=== PATIENT | female | born 1945 | race Caucasian/White ===

== ENCOUNTER → 2020-01-12 | Outpatient (CLI) | payer MEDICARE, BC ==
--- NOTE | 2020-01-12 18:07 | P.HPBAR ---
Bariatric H&P - History & Physicial H&P Date: 01/12/20 History & Physicial: Visit/CC: Initial Visit Patient initial contact: Initial weight: 118.444 kg Initial weight in pounds: 261.12 Height: 5 ft 4 in Initial BMI: 44.8 Last weight: Current weight: 102.058 kg Current weight in pounds: 225.00 Current BMI: 38.6 [place] body weight (based on NIH guidelines): 54.431 kg Excess body weight loss: 25.5% The patient is a 74 year-old F who presents for Bariatric Assessment. 74-year-old female here to discuss options of bariatric surgery. She apparently has been interested in bariatric surgery for the last 6 years or so. Currently remains interested in sleeve gastrectomy. Patient suffers from chronic back pain, arthritis, hypertension, coronary artery disease, GERD, hiatal hernia. Patient with history of colon cancer many years ago through a large midline incision. Currently on Plavix. Has had a total of 12 cardiac stents. 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 No tobacco use. BMI 38.5. Denies history of DVT or dysphagia. 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 Eczema History of Any Multi-Drug Resistant Organisms: None Reported Past Surgical History: Heart Catheterization With Stent, Hysterectomy, Joint Replacement, Orthopedic Surgery Additional Past Surgical History / Comment(s): Colon resection 1996, Total Thyroidectomy 2002, Hysterectomy 1980, Sven. Knee Replacement-RT.-2009 and Lt.- 2010, Arthroscopic surgeries to bilat. knees, Lasik Surgery Rt. eye October 2013. Past Anesthesia/Blood Transfusion Reactions: No Reported Reaction Date of Last Stent Placement:: 2009 Past Psychological History: No Psychological Hx Reported Smoking Status: Former smoker Past Alcohol Use History: None Reported Past Drug Use History: None Reported - Past Family History Father Family Medical History: Cancer Additional Family Medical History / Comment(s): Mother of heart disease, Brother of heart disease Surgical - Exam Vital Signs Temp Pulse Resp BP 98.1 F 106 H 16 124/87 01/12/20 16:26 01/12/20 16:26 01/12/20 16:26 01/12/20 16:26 Physical exam: General: Well-developed, well-nourished HEENT: Normocephalic, sclerae nonicteric Abdomen: Nontender, nondistended, large midline incision Extremities: No edema Neuro: Alert and oriented Bariatric Assessment & Plan (1) Morbid obesity Narrative/Plan: 74-year-old female with complaints of ongoing obesity. Both surgical and nonoperative weight loss methods discussed with the patient. Risks and benefits of both gastric bypass and sleeve gastrectomy discussed in detail as well. Patient remains interested in sleeve gastrectomy at this time. Patient will require preoperative medical and cardiac clearance. Patient had a recent CAT scan performed which apparently did revealed the hiatal hernia. We'll plan preoperative EGD. We'll plan follow-up back in the bariatric center after upper endoscopy performed. Status: Acute Bariatric Checklist Checklist: Plan: Checklist: EGD: 1. Hiatal hernia: 2. H. Pylori: HgbA1c: Vitamin D: Smoking: Former smoker Primary care physician referral: Brittany Psychiatry clearance: Cardiology clearance: Sleep study: Diet journal: VTE risk score: VTE risk level: Rehab needs at discharge:
[2020-01-13 10:20] VITALS: BP 162/84; PULSE 71; RESP 16; TEMP 98.2; BMI 38.6
== END | disposition home or self-care (01) ==
LOC: BARWHC3 14:51
PROVIDERS: ATTEND Surgery
DX: E66.01 Morbid (severe) obesity due to excess calories (principal); K21.9 Gastro-esophageal reflux disease without esophagitis; K44.9 Diaphragmatic hernia without obstruction or gangrene; I10 Essential (primary) hypertension; M19.90 Unspecified osteoarthritis, unspecified site; G89.29 Other chronic pain; Z68.38 Body mass index [BMI] 38.0-38.9, adult; I25.10 Atherosclerotic heart disease of native coronary artery without angina pectoris; Z87.891 Personal history of nicotine dependence; Z85.038 Personal history of other malignant neoplasm of large intestine; Z90.710 Acquired absence of both cervix and uterus
CPT/HCPCS: 99211

== ENCOUNTER → 2020-01-18 | Outpatient (CLI) | payer MEDICARE, BC ==
[2020-01-18 13:25] LABS: HCT 36.1 % (34.0-46.0); HGB 12.3 gm/dL (11.4-16.0); MCH 31.7 pg (25.0-35.0); MCV 93.4 fL (80.0-100.0); Mean Platelet Volume 7.3; Platelet Count 138 k/uL (150-450); RBC 3.86 m/uL (3.80-5.40); RDW 14.1 % (11.5-15.5); WBC 5.4 k/uL (3.8-10.6)
[2020-01-18 20:28] LABS: Hemoglobin A1C 5.5 % (4.0-6.0)
[2020-01-18 20:45] LABS: ALT 36 U/L (8-44); AST 30 U/L (13-35); African American GFR (CKD) 57.3 (60.0-200.0); Alkaline Phosphatase 72 U/L (41-126); BUN/Creat Ratio 20.91 Ratio (12.00-20.00); Calcium 9.1 mg/dL (8.7-10.3); Carbon Dioxide 24.3 mmol/L (21.6-31.8); Chloride 107 mmol/L (96-109); Glucose 120 mg/dL (70-110); Iron 119 ug/dL (50-170); Non-African American GFR(CKD) 49.4 (60.0-200.0); Potassium 4.2 mmol/L (3.5-5.5); Sodium 141 mmol/L (135-145); Total Bilirubin 0.8 mg/dL (0.2-1.2); Total Protein 5.8 g/dL (6.2-8.2)
[2020-01-18 21:12] LABS: Folate, Serum >24.0 ng/mL
== END | disposition home or self-care (01) ==
LOC: LABWHC1 09:07
PROVIDERS: ATTEND Surgery
DX: E55.9 Vitamin D deficiency, unspecified (principal); K90.89 Other intestinal malabsorption; E66.01 Morbid (severe) obesity due to excess calories
CPT/HCPCS: 36415; 80053; 82607; 82746; 83036; 83540; 84425; 85027

== ENCOUNTER 2020-03-13 09:01 | Day surgery (SDC) | payer MEDICARE, BC ==
[2020-03-08 10:04] VITALS: BMI 36.6
[~2020-03-13 09:01] MED LIST: LACTATED RINGERS 1,000 ML IV SCH; LIDOCAINE 1% (10MG/ML) FOR IV START INTRADERMA PRN
[2020-03-13 09:35] VITALS: RESP 16; TEMP 96.8
[2020-03-13] MEDS ORDERED: PROPOFOL 10 MG/ML 20 ML VIAL IV ONE (09:48)
--- NOTE | 2020-03-13 09:58 | P.GSHP ---
History of Present Illness H&P Date: 03/13/20 Chief Complaint: Change in bowel habits, reflux Patient here today for upper and lower endoscopy. Patient with complaints of chronic reflux. Has a known hiatal hernia. Patient also with a personal history of colon cancer in the descending colon. Last colonoscopy 1 year ago. Patient has had narrower stools recently. History of polyps as well. No rectal bleeding. 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 Knee Replacement, Arthroscopic bilat. knees, Lasik Surgery Rt. eye, sven rt oophorectomy, rt elbow surgery, 12 cardiac stents(5 heart catheterizations) Past Anesthesia/Blood Transfusion Reactions: Motion Sickness Date of Last Stent Placement:: 09/2017 Smoking Status: Former smoker - Past Family History Father Family Medical History: Cancer Additional Family Medical History / Comment(s): lung Medications and Allergies Home Medications Medication Instructions Recorded Confirmed Type Atorvastatin Calcium [Lipitor] 40 mg PO DAILY 11/23/13 03/13/20 History Multivitamins, Thera [Multivitamin 1 each PO HS 11/23/13 03/13/20 History (formulary)] Pantoprazole Sodium [Protonix] 40 mg PO HS 11/23/13 03/13/20 History clonazePAM [KlonoPIN] 1 mg PO HS 11/23/13 03/13/20 History Nitroglycerin Sl Tabs [Nitrostat] 0.4 mg SUBLINGUAL Q5M PRN #25 tab 11/25/13 03/13/20 Rx Aspirin [Adult Low Dose Aspirin EC] 81 mg PO HS 03/08/20 03/13/20 History Cannabidiol (Cbd) [Epidiolex] 0 mg PO DIRECTED 03/08/20 03/13/20 History Cholecalciferol [Vitamin D3 (25 2,000 unit PO HS 03/08/20 03/13/20 History Mcg = 1000 Iu)] Clopidogrel [Plavix] 75 mg PO DAILY 03/08/20 03/13/20 History Levothyroxine Sodium [Synthroid] 88 mcg PO DAILY 03/08/20 03/13/20 History Liothyronine Sodium [Cytomel] 25 mcg PO DAILY 03/08/20 03/13/20 History Metoprolol Succinate [Toprol XL] 100 mg PO HS 03/08/20 03/13/20 History Olmesartan [Benicar] 20 mg PO DAILY 03/08/20 03/13/20 History Triamterene/Hydrochlorothiazid 1 cap PO DAILY 03/08/20 03/13/20 History [Dyazide 37.5-25 Capsule] Turmeric Root Extract [Turmeric] 500 mg PO HS 03/08/20 03/13/20 History diphenhydrAMINE [Benadryl] 25 mg PO HS 03/08/20 03/13/20 History Allergies Allergy/AdvReac Type Severity Reaction Status Date / Time hydromorphone HCl AdvReac Itching Verified 03/08/20 09:48 [From Dilaudid] ondansetron HCl [From Zofran] AdvReac Dyspnea Verified 03/08/20 09:48 Surgical - Exam Vital Signs Temp Pulse Resp Pulse Ox 96.8 F L 74 16 96 03/13/20 09:34 03/13/20 09:34 03/13/20 09:34 03/13/20 09:34 Physical exam: General: Well-developed, well-nourished HEENT: Normocephalic, sclerae nonicteric Abdomen: Nontender, nondistended Extremities: No edema Neuro: Alert and oriented Assessment and Plan (1) Change in bowel habits Narrative/Plan: Will proceed with upper and lower endoscopy. Current Visit: Yes Status: Acute Code(s): R19.4 - CHANGE IN BOWEL HABIT SNOMED Code(s): 684776365
--- NOTE | 2020-03-13 10:15 | P.PCN ---
Date of Procedure: 03/13/20 Procedure(s) Performed: PREOPERATIVE DIAGNOSIS: GERD, change in bowel habits POSTOPERATIVE DIAGNOSIS: Mild gastritis with small erosions, small hiatal hernia, small sigmoid polyp PROCEDURE: 1. EGD with biopsy 2. Colonoscopy with biopsy ANESTHESIA: [facility] SURGEON: Bladimir Akhtar M.D. SPECIMENS: Antrum, sigmoid colon polyp ENDOSCOPIC PROCEDURE: The patient was on the endoscopy table in the left decubitus position. The Olympus gastroscope was inserted into the oropharynx and passed under direct visualization to the region of the third portion of the duodenum. From that point the scope was slowly withdrawn inspecting all surfaces carefully. There were no neoplastic inflammatory or polypoid lesions throughout the duodenum. The pylorus was widely patent. The stomach was carefully inspected. There was mild gastritis present a few small erosions were noted. A biopsy of the antrum took place to rule out H. pylori. Retroflexion revealed a small hiatal hernia. The GE junction was present 2 cm above the diaphragmatic hiatus. The esophagus was then carefully examined. There were no neoplastic inflammatory or polypoid lesions throughout the visualized esophagus. The patient was kept on the endoscopy table in the left decubitus position. The Olympus colonoscope was inserted into the anus and passed under direct visualization to the base of the cecum. The appendiceal orifice was visualized. From that point the scope was slowly withdrawn inspecting all surfaces carefully. There were no neoplastic inflammatory or polypoid lesions throughout the cecum, ascending, and transverse colon. The anastomosis was present approximately 30 cm from the anus. There was some angulation there but the anastomosis was widely patent. Just distal to the anastomosis in the sigmoid colon was a small polyp. This was removed using the cold biopsy forceps. There was no visible diverticulosis. Digital rectal examination was normal. The patient was taken to the recovery room in stable condition per anesthesia guidelines. RECOMMENDATIONS: Await biopsy results. Continue antiacid therapy. Follow-up colonoscopy 3-5 years.
[2020-03-13 10:36] VITALS: BP 106/69; PULSE 69
== END 2020-03-13 11:10 | disposition home or self-care (01) ==
LOC: ORWHC2ENDO 09:01
PROVIDERS: ATTEND Surgery
DX: D12.5 Benign neoplasm of sigmoid colon (principal); K29.50 Unspecified chronic gastritis without bleeding; K21.9 Gastro-esophageal reflux disease without esophagitis; K44.9 Diaphragmatic hernia without obstruction or gangrene; I25.10 Atherosclerotic heart disease of native coronary artery without angina pectoris; H91.90 Unspecified hearing loss, unspecified ear; E78.5 Hyperlipidemia, unspecified; I10 Essential (primary) hypertension; M19.90 Unspecified osteoarthritis, unspecified site; E07.9 Disorder of thyroid, unspecified; L30.9 Dermatitis, unspecified; Z85.038 Personal history of other malignant neoplasm of large intestine; H93.11 Tinnitus, right ear; Z85.850 Personal history of malignant neoplasm of thyroid; Z90.49 Acquired absence of other specified parts of digestive tract; Z95.5 Presence of coronary angioplasty implant and graft; Z90.710 Acquired absence of both cervix and uterus; Z96.653 Presence of artificial knee joint, bilateral; Z90.721 Acquired absence of ovaries, unilateral; Z98.890 Other specified postprocedural states; Z87.891 Personal history of nicotine dependence; Z80.1 Family history of malignant neoplasm of trachea, bronchus and lung; Z79.02 Long term (current) use of antithrombotics/antiplatelets; Z79.82 Long term (current) use of aspirin; Z79.890 Hormone replacement therapy; Z79.899 Other long term (current) drug therapy; Z88.5 Allergy status to narcotic agent; Z88.8 Allergy status to other drugs, medicaments and biological substances
CPT/HCPCS: 88305; 45380; 43239; J2704

== ENCOUNTER → 2020-04-30 | Outpatient (CLI) | payer MEDICARE, BC ==
[2020-04-30 13:06] VITALS: BMI 35.3
== END | disposition home or self-care (01) ==
LOC: BARWHC3 08:34
PROVIDERS: ATTEND Surgery
DX: E66.01 Morbid (severe) obesity due to excess calories (principal); Z71.3 Dietary counseling and surveillance
CPT/HCPCS: 97804

== ENCOUNTER 2020-09-26 08:51 | Day surgery (SDC) | payer MEDICARE, BC ==
[2020-09-24 14:41] VITALS: BMI 34.6
[~2020-09-26 08:51] MED LIST changes: -LIDOCAINE 1% (10MG/ML) FOR IV START INTRADERMA PRN; +TETRACAINE 0.5% OPHTH (PF) DROPS 4 ML BTL OP PRN
[2020-09-26] MEDS: CYCLOPENTOLATE 1% OPHTH SOLN 2 ML BTL OP PRN ×3 (10:09→10:25)
[2020-09-26] MEDS ORDERED: LIDOCAINE 1% (10MG/ML) FOR IV START INTRADERMA ONE (10:10)
[2020-09-26 10:12] VITALS: TEMP 97.4
[2020-09-26] MEDS: PHENYLEPHRINE 2.5% OPHTH DRP 2ML OP PRN ×3 (10:12→10:28)
[2020-09-26] MEDS ORDERED: MIDAZOLAM 2 MG/2 ML VIAL ONE (10:52)
[2020-09-26] MEDS ORDERED: EPINEPHrine (PF) 0.3 ML in BALANCED SALT IRRIG SOLN COMB2 500 ML IRRIGATION ONE (11:05)
[2020-09-26] MEDS ORDERED: HYALURONATE SODIUM INTRAOCULAR 1 EACH SYRINGE (12MG/ML) INTRAOCULA ONE ×2 (11:10→11:12)
[2020-09-26] MEDS ORDERED: BALANCED SALT IRRIG SOLN COMB2 15 ML IRRIG.SOLN IRRIGATION ONE ×2 (11:10→11:12)
[2020-09-26] MEDS: TIMOLOL 0.5% OPHTH DROPS 5 ML BTL OP PRN ×2 (11:11→11:17)
[2020-09-26] MEDS ORDERED: LIDOCAINE 1% (PF) 10MG/ML VIAL MISCELLANE ONE ×2 (11:11→11:12)
[2020-09-26] MEDS: MOXIFLOXACIN HCL 0.5% DROPS 3 ML BTL OP PRN ×2 (11:12→11:17)
--- NOTE | 2020-09-26 11:24 | P.OP ---
Date of Procedure: 09/26/20 Preoperative Diagnosis: NS & CS Postoperative Diagnosis: same Procedure(s) Performed: PIOL< OS Implants: MX60E 20.00 Anesthesia: MAC Surgeon: Gerardo Prieto Pathology: none sent Condition: stable Disposition: same day Indications for Procedure: blurry vision Operative Findings: no complications
[2020-09-26 11:52] VITALS: BP 135/78; PULSE 55; RESP 18
--- NOTE | 2020-09-26 20:33 | OP ---
OPERATIVE REPORT DATE OF SURGERY: 09/26/2020 PROCEDURE: Phacoemulsification of cataract and intraocular lens implant of the left eye. PREOPERATIVE DIAGNOSIS: Nuclear sclerosis, cortical sclerosis, posterior subcapsular cataract. POSTOPERATIVE DIAGNOSIS: Nuclear sclerosis, cortical sclerosis, posterior subcapsular cataract. ESTIMATED BLOOD LOSS: Zero. SPECIMEN TAKEN: None. NARRATIVE: After obtaining the appropriate consent, the patient was brought to the operating room, where the patient was placed under cardiac monitoring and prepped and draped in the usual sterile manner. At the 5 o'clock position a 15-degree super sharp blade was used to create a paracentesis followed by instillation of 1% Xylocaine MPF 50:50 mix with BSS into the anterior chamber. This was followed by Amvisc to stabilize the anterior chamber. At the 3 o'clock position a self-sealing corneal flap incision was created using 2.8 mm bina keratome. A cystotome was used to initiate a continuous tear capsulorrhexis which was completed with the Utrata forceps. A Binkhorst cannula was used to hydrodissect the lens nucleus followed by hydrodelineation. Phacoemulsification of the lens was performed utilizing phacochop in 17.69 seconds at 13% power. The remaining cortical material was removed using the irrigation aspiration mode followed by additional 1% Xylocaine MPF into the anterior chamber followed by viscoelastic to stabilize the capsular bag. A Bausch [employer] Lomb MX60E 20.0 diopter posterior chamber lens was placed into the capsular bag without difficulty. The remaining viscoelastic material was removed from the anterior chamber with the irrigation/aspiration. Balanced salt solution was used to normalize the intraocular pressure. The incision was checked for watertight integrity. The patient then received two drops of 0.5% timolol followed by two drops Vigamox, was lightly patched and shielded in the usual manner. There were no complications from the procedure. The patient tolerated the procedure well and was returned to Recovery in good condition. MMODL / IJN: [id number] /
== END 2020-09-26 12:05 | disposition home or self-care (01) ==
LOC: OR 08:51
PROVIDERS: ATTEND Ophthalmology
DX: H25.13 Age-related nuclear cataract, bilateral (principal); H25.013 Cortical age-related cataract, bilateral; H40.013 Open angle with borderline findings, low risk, bilateral; H00.026 Hordeolum internum left eye, unspecified eyelid; H00.023 Hordeolum internum right eye, unspecified eyelid; H52.13 Myopia, bilateral; H52.221 Regular astigmatism, right eye; H52.4 Presbyopia; I25.10 Atherosclerotic heart disease of native coronary artery without angina pectoris; I11.9 Hypertensive heart disease without heart failure; K21.9 Gastro-esophageal reflux disease without esophagitis; H04.129 Dry eye syndrome of unspecified lacrimal gland; E78.5 Hyperlipidemia, unspecified; H91.92 Unspecified hearing loss, left ear; H93.19 Tinnitus, unspecified ear; L30.9 Dermatitis, unspecified; Z95.5 Presence of coronary angioplasty implant and graft; Z90.710 Acquired absence of both cervix and uterus; Z96.653 Presence of artificial knee joint, bilateral; E89.0 Postprocedural hypothyroidism; Z98.890 Other specified postprocedural states; Z90.49 Acquired absence of other specified parts of digestive tract; J30.2 Other seasonal allergic rhinitis; Z83.518 Family history of other specified eye disorder; Z80.9 Family history of malignant neoplasm, unspecified; Z82.49 Family history of ischemic heart disease and other diseases of the circulatory system; Z79.890 Hormone replacement therapy; Z79.899 Other long term (current) drug therapy; Z88.5 Allergy status to narcotic agent; Z88.8 Allergy status to other drugs, medicaments and biological substances; Z79.02 Long term (current) use of antithrombotics/antiplatelets; Z79.82 Long term (current) use of aspirin
CPT/HCPCS: 66984; C1780; J2250; J0171; J2001

== ENCOUNTER 2021-09-02 09:49 | Inpatient (IN) | payer MEDICARE, BC ==
--- NOTE | 2021-09-02 10:48 | ED ---
General Adult HPI - General Chief complaint: Psychiatric Symptoms Stated complaint: mental health Time Seen by Provider: 09/02/21 09:54 Source: patient Mode of arrival: ambulatory Limitations: no limitations - History of Present Illness Initial comments: Dictation was produced using [employer] dictation software. please excuse any grammatical, word or spelling errors. Chief Complaint: 75-year-old feel presents emergency department for suicidal ideation History of Present Illness: This 75-year-old female presents to the emergency department for suicidal ideation. She feels depressed because a lot of personal issues. She wants to overdose on pills. She called her primary care doctor was directed to the emergency department for further care. Has no medical complaints. The ROS documented in this emergency department record has been reviewed and confirmed by me. Those systems with pertinent positive or negative responses metcalf ve been documented in the HPI. All other systems are other negative and/or noncontributory. PHYSICAL EXAM: General Impression: Alert and oriented x3, not in acute distress, crying HEENT: Normocephalic atraumatic, extra-ocular movements intact, pupils equal and reactive to light bilaterally, mucous membranes moist. Cardiovascular: Heart regular rate and rhythm Chest: Able to complete full sentences, no retractions, no tachypnea Musculoskeletal: no peripheral edema Motor: no focal deficits noted Neurological: CN II-XII grossly intact, no focal motor or sensory deficits noted Skin: Intact with no visualized rashes Psych: Tearful ED course: 75-year-old female presents to the emergency department for suicidal ideation. Vital signs Upon arrival are within acceptable limits. Patient medic ally cleared for EPS evaluation. . Labs were ordered by EPS nurse. Labs are unremarkable. COVID-19 test negative. Patient will be admitted to inpatient psychiatry. - Related Data Home Medications Medication Instructions Recorded Confirmed Multivitamins, Thera [Multivitamin 1 tab PO HS 11/23/13 09/02/21 (formulary)] Pantoprazole Sodium [Protonix] 40 mg PO HS 11/23/13 09/02/21 clonazePAM [KlonoPIN] 1 mg PO HS 11/23/13 09/02/21 Liothyronine Sodium [Cytomel] 25 mcg PO DAILY 03/08/20 09/02/21 Metoprolol Succinate [Toprol XL] 100 mg PO HS 03/08/20 09/02/21 Triamterene/Hydrochlorothiazid 1 cap PO DAILY 03/08/20 09/02/21 [Dyazide 37.5-25 Capsule] Ezetimibe [Zetia] 10 mg PO HS 09/02/21 09/02/21 Krill Oil 500 mg PO BID 09/02/21 09/02/21 Levothyroxine Sodium [Synthroid] 75 mcg PO [id number] 09/02/21 09/02/21 Magnesium Gluconate [Magonate] 250 mg PO BID 09/02/21 09/02/21 Olmesartan/Hydrochlorothiazide 1 tab PO DAILY 09/02/21 09/02/21 [Olmesartan-Hctz 20-12.5 mg Tab] Rosuvastatin Calcium [Crestor] 20 mg PO DAILY 09/02/21 09/02/21 Ubidecarenone [Co Q-10] 100 mg PO BID 09/02/21 09/02/21 Previous Rx's Medication Instructions Recorded Nitroglycerin Sl Tabs [Nitrostat] 0.4 mg SUBLINGUAL Q5M PRN #25 tab 11/25/13 Allergies Allergy/AdvReac Type Severity Reaction Status Date / Time hydromorphone HCl AdvReac Itching, Verified 09/02/21 13:25 [From Dilaudid] Hives and eyes swelling ondansetron HCl [From Zofran] AdvReac dysphagia/Paralysed Verified 09/02/21 13:25 esophagus ropinirole [From Requip] AdvReac Insomnia, Verified 09/02/21 13:25 Nausea & Vomiting Review of Systems ROS Statement: Those systems with pertinent positive or pertinent negative responses have been documented in the HPI. ROS Other: All systems not noted in ROS Statement are negative. 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 ear, Eczema, hiatal hernia, hx colon cancer 1996- surg. & chemo, thyroid cancer History of Any Multi-Drug Resistant Organisms: None Reported Past Surgical History: Bowel Resection, Heart Catheterization With Stent, Hysterectomy, Joint Replacement, Orthopedic Surgery Additional Past Surgical History / Comment(s): Thyroidectomy, Sven. Knee Replacement, Arthroscopic bilat. knees, Lasik Surgery Rt. eye, sven rt o ophorectomy, rt elbow surgery, 12 cardiac stents(5 heart catheterizations) Past Anesthesia/Blood Transfusion Reactions: Motion Sickness Date of Last Stent Placement:: 09/2017 Past Psychological History: No Psychological Hx Reported Smoking Status: Former smoker Past Alcohol Use History: None Reported Past Drug Use History: None Reported - Past Family History Father Family Medical History: Cancer Additional Family Medical History / Comment(s): lung General Exam Limitations: no limitations Course Vital Signs 09/02/21 09:50 Temperature 97.6 F Pulse Rate 83 Respiratory 22 Rate Blood Pressure 151/73 O2 Sat by Pulse 100 Oximetry Medical Decision Making - Lab Data Result diagrams: 09/02/21 14:18 09/02/21 14:18 Lab Results 09/02/21 09/02/21 09/02/21 Range/Units 14:18 14:18 14:18 WBC 5.0 (3.8-10.6) k/uL RBC 4.10 (3.80-5.40) m/uL Hgb 13.7 (11.4-16.0) gm/dL Hct 40.1 (34.0-46.0) % MCV 97.8 (80.0-100.0) fL MCH 33.3 (25.0-35.0) pg MCHC 34.1 (31.0-37.0) g/dL RDW 13.5 (11.5-15.5) % Plt Count 139 L (150-450) k/uL MPV 7.6 Neutrophils % 55 % Lymphocytes % 35 % Monocytes % 5 % Eosinophils % 2 % Basophils % 0 % Neutrophils # 2.8 (1.3-7.7) k/uL Lymphocytes # 1.7 (1.0-4.8) k/uL Monocytes # 0.3 (0-1.0) k/uL Eosinophils # 0.1 (0-0.7) k/uL Basophils # 0.0 (0-0.2) k/uL Sodium 137 (137-145) mmol/L Potassium 4.0 (3.5-5.1) mmol/L Chloride 104 (98-107) mmol/L Carbon Dioxide 25 (22-30) mmol/L Anion Gap 8 mmol/L BUN 20 H (7-17) mg/dL Creatinine 0.79 (0.52-1.04) mg/dL Est GFR (CKD-EPI)AfAm 85 (>60 ml/min/1.73 sqM) Est GFR (CKD-EPI)NonAf 74 (>60 ml/min/1.73 sqM) Glucose 112 H (74-99) mg/dL Calcium 9.3 (8.4-10.2) mg/dL Total Bilirubin 0.9 (0.2-1.3) mg/dL AST 32 (14-36) U/L ALT 34 (4-34) U/L Alkaline Phosphatase 56 (38-126) U/L Total Protein 6.5 (6.3-8.2) g/dL Albumin 4.0 (3.5-5.0) g/dL Coronavirus (PCR) Not Detected (Not Detectd) Disposition Clinical Impression: Suicidal ideation Disposition: ADMITTED IP TO THIS [facility] Condition: Fair Referrals: Nick Jasso MD [Primary Care Provider] - 1-2 days
[2021-09-02 14:30] LABS: Basophils % (A) 0 %; Eosinophils # (A) 0.1 k/uL (0-0.7); Eosinophils % (A) 2 %; HCT 40.1 % (34.0-46.0); HGB 13.7 gm/dL (11.4-16.0); Lymphocytes # (A) 1.7 k/uL (1.0-4.8); Lymphocytes % (A) 35 %; MCH 33.3 pg (25.0-35.0); MCHC 34.1 g/dL (31.0-37.0); MCV 97.8 fL (80.0-100.0); Mean Platelet Volume 7.6; Monocytes # (A) 0.3 k/uL (0-1.0); Monocytes % (A) 5 %; Neutrophils # (A) 2.8 k/uL (1.3-7.7); Neutrophils % (A) 55 %; Platelet Count 139 k/uL (150-450); RDW 13.5 % (11.5-15.5)
[2021-09-02 14:39] LABS: Calcium 9.3 mg/dL (8.4-10.2); Total Bilirubin 0.9 mg/dL (0.2-1.3); Total Protein 6.5 g/dL (6.3-8.2)
[2021-09-02] MEDS ORDERED: LORazepam 1 MG TAB PO PRN (17:12)
[2021-09-02] MEDS ORDERED: MAGNESIUM HYDROXIDE 2,400 MG/10 ML CUP PO PRN (17:12)
[2021-09-02] MEDS ORDERED: MAG HYDROX/AL HYDROX/SIMETH 30 ML CUP PO PRN (17:12)
[2021-09-02] MEDS: PANTOPRAZOLE 40 MG TABLET PO SCH (20:15)
[2021-09-02] MEDS: MULTIVITAMINS, THERA 1 EACH TAB PO SCH (20:15)
[2021-09-02] MEDS: METOPROLOL SUCCINATE (ER) 100 MG TAB.ER.24H PO SCH (20:15)
[2021-09-02 20:54] LABS: Appearance,Urine Clear (Clear); Bacteria,Urine Rare /hpf; Bilirubin,Urine Negative (Negative); Blood,Urine Negative (Negative); Budding Yeast,Urine Occasional /hpf; Color,Urine Yellow; Glucose,Urine (UA) Negative (Negative); Hyaline Casts,Urine 1 /lpf (0-2); Ketones,Urine Negative (Negative); Leukocyte Esterase,Urine Large (Negative); Mucus,Urine Rare /hpf; Nitrite,Urine Negative (Negative); Protein,Urine Negative (Negative); RBC,Urine 1 /hpf (0-5); Specific Gravity,Urine 1.012 (1.001-1.035); Squamous Epithelial Cell,Urine 1 /hpf (0-4); Urobilinogen,Urine <2.0 mg/dL (<2.0); WBC,Urine 21 /hpf (0-5)
[2021-09-02] MEDS: clonazePAM 0.5 MG TAB PO SCH (21:15)
[2021-09-02] MEDS: ACETAMINOPHEN TAB 325 MG TAB PO PRN (21:15)
[2021-09-03] MEDS ORDERED: LEVOTHYROXINE 75 MCG TAB PO SCH (06:30)
[2021-09-03] MEDS: LOSARTAN 50 MG TAB PO SCH (08:42)
[2021-09-03] MEDS: ATORVASTATIN 40 MG TAB PO SCH (08:42)
[2021-09-03] MEDS: ASPIRIN 81 MG PO SCH (08:42)
[2021-09-03] MEDS ORDERED: hydroCHLOROthiazide 12.5 MG CAP PO SCH (09:00)
[2021-09-03] MEDS ORDERED: TRIAMTERENE-HCTZ 37.5-25MG 1 EACH CAP PO SCH (09:00)
[2021-09-03] MEDS ORDERED: LIOTHYRONINE SODIUM 5 MCG TAB PO SCH (09:00)
[2021-09-03] MEDS: ACETAMINOPHEN TAB 325 MG TAB PO PRN ×2 (09:01→21:21)
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
[2021-09-03] MEDS: DULoxetine HCL 20 MG CAPSULE.DR PO SCH (14:39)
--- NOTE | 2021-09-03 15:26 | P.MDCNMH ---
History of Present Illness H&P Date: 09/03/21 HISTORY OF PRESENT ILLNESS This is a 75-year-old female patient of Dr. Jasso with past medical history of coronary artery disease status post percutaneous coronary intervention and stent placement of the RCA, first one in July 2009 in the proximal mid and distal RCA with 3 stents and the second was in January 2010. Hypertension, hypertensive cardio vascular disease, hyperlipidemia, generalized osteoporosis, osteopenia, hypothyroidism, colon cancer status post partial colectomy, thyroid cancer status post thyroidectomy in 2002, thyroid disease managed by Dr. Jane De La Garza, gastroesophageal reflux disease. The patient states that she lives with her son and he is an alcoholic and was admitted and will not seek treatment. She states her was also an alcoholic and she sees her son going down the same path. She denies having any depression in the past. She states she was having suicidal thoughts but does not think that she was going to carry through with any thoughts and it was a cry for help. She states she is feeling better today but still is sad. She has been on Klonopin in the past for restless leg syndrome for many years and now using for sleep. Blood pressure was on the lower side this morning and hydrochlorothiazide and Dyazide were held. Labo ratory studies: Platelet count 139. Blood sugar 112. A1c is 5. BUN 20 creatinine 0.79. TSH was less than 0.15. Changes of been made to her thyroid medications. Urinalysis revealed a esterase large, WBCs 21, bacteria rare REVIEW OF SYSTEMS Constitutional: No fever, no chills, no night sweats. No weight change. No weakness, fatigue or lethargy. No daytime sleepiness. EENT: No headache. No blurred vision or double vision, no loss of vision. No loss of Hearing, no ringing in the ears, no dizziness. No nasal drainage or congestion. No epistaxis. No sore throat. Lungs: No shortness of breath, cough, no sputum production. No wheezing. Cardiovascular: No chest pain, no lower extremity edema. No palpitations. No paroxysmal nocturnal dyspnea. No orthopnea. No lightheadedness or dizziness. No syncopal episodes. Abdominal: No abdominal pain. No nausea, vomiting. No diarrhea. No constipation. No bloody or tarry stools. No loss of appetite. Genitourinary: No dysuria, increased frequency, urgency. No urinary retention. Musculoskeletal: No myalgias. No muscle weakness, no gait dysfunction, no frequent falls. No back pain. No neck pain. Integumentary: No wounds, no lesions. No rash or pruritus. No unusual bruising. No change in hair or nails. Neurologic: No aphasia. No facial droop. No change in mentation. No head injury. No headache. No paralysis. No paresthesia. Psychiatric: No depression. No anxiety. No mood swings. Endocrine: No abnormal blood sugars. No weight change. No excessive sweating or thirst. No cold intolerance. SOCIAL HISTORY Patient was a smoker of one pack per week and smoked only for about 10 years and quit about 40 years ago. She drinks alcohol occasionally. No drug use or abu se. 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 FAMILY HISTORY Mother at the age of 83 from coronary artery disease. Father at age of 73 from lung cancer. Patient has one sister and 2 brothers. One of her brothers at the age of 63 from myocardial infarction. Patient has one son and one daughter. PHYSICAL EXAMINATION Gen: This is a 75-year-old female. She is seen on the mental health unit, ambulating without any difficulty, cooperative. HEENT: Head is atraumatic, normocephalic. Pupils equal, round. Sclerae is anicteric. NECK: Supple. No JVD. No lymphadenopathy. No thyromegaly. LUNGS: Clear to auscultation. No wheezes or rhonchi. No intercostal retractions. HEART: Regular rate and rhythm. No murmur. ABDOMEN: Soft. Bowel sounds are present. No masses. No tenderness. EXTREMITIES: No pedal edema. No calf tenderness. NEUROLOGICAL: Patient is awake, alert and oriented x3. Cranial nerves 2 through 12 are grossly intact. ASSESSMENT AND PLAN 1. Depression and suicidal ideation area and patient omitted to the mental health unit. Continue current plan per psychiatry. 2. History of thyroid cancer status post thyroidectomy with hypothyroidism. Discontinue Cytomel. Continue patient on levothyroxine at home dose of 75 g Thursday through Thursday. Patient will have follow-up with Dr. Jasso and have recheck of thyroid levels, she has follow-up appointment with endocrinology around December or January. 3. Hypertension, hypertensive cardiovascular disease. Continue on losart an/hydrochlorothiazide 1 daily, Toprol-XL 100 mg at bedtime. 4. History of coronary artery disease status post PCI. Continue Lipitor 40 mg daily, Toprol-XL. 5. Hyperlipidemia. Continue statin, Zetia. 6. Generalized osteoporosis and osteopenia. 7. History of colon cancer status post partial colectomy. 8. Gastroesophageal reflux disease. Continue Protonix. DISCHARGE PLAN Follow-up with Dr. Jasso one week after discharge. Impression and plan of care have been directed as dictated by the signing physician. Елена Booth nurse practitioner acting as scribe for signing physician. 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 ear, Eczema, hiatal hernia, hx colon cancer 1996- surg. & chemo, thyroid cancer History of Any Multi-Drug Resistant Organisms: None Reported Past Surgical History: Bowel Resection, Heart Catheterization With Stent, Hysterectomy, Joint Replacement, Orthopedic Surgery Additional Past Surgical History / Comment(s): Thyroidectomy, Sven. Knee Replacement, Arthroscopic bilat. knees, Lasik Surgery Rt. eye, sven rt oophorectomy, rt elbow surgery, 12 cardiac stents(5 heart catheterizations) Past Anesthesia/Blood Transfusion Reactions: Motion Sickness Date of Last Stent Placement:: 09/2017 Past Psychological History: No Psychological Hx Reported Smoking Status: Former smoker Past Alcohol Use History: None Reported Additional Past Alcohol Use History / Comment(s): quit smoking 40 yrs ago, smoked for 20 yrs, pack/week Past Drug Use History: None Reported Additional Drug Use History / Comment(s): CBD oil every other HS - Past Family History Father Family Medical History: Cancer Additional Family Medical History / Comment(s): lung Medications and Allergies Home Medications Medication Instructions Recorded Confirmed Type Multivitamins, Thera [Multivitamin 1 tab PO HS 11/23/13 09/02/21 History (formulary)] Pantoprazole Sodium [Protonix] 40 mg PO HS 11/23/13 09/02/21 History clonazePAM [KlonoPIN] 1 mg PO HS 11/23/13 09/02/21 History Nitroglycerin Sl Tabs [Nitrostat] 0.4 mg SUBLINGUAL Q5M PRN #25 tab 11/25/13 09/02/21 Rx Metoprolol Succinate [Toprol XL] 100 mg PO HS 03/08/20 09/02/21 History Triamterene/Hydrochlorothiazid 1 cap PO DAILY 03/08/20 09/02/21 History [Dyazide 37.5-25 Capsule] Ezetimibe [Zetia] 10 mg PO HS 09/02/21 09/02/21 History Krill Oil 500 mg PO BID 09/02/21 09/02/21 History Levothyroxine Sodium [Synthroid] 75 mcg PO MOTUWETHFRSA 09/02/21 09/02/21 History Magnesium Gluconate [Magonate] 250 mg PO BID 09/02/21 09/02/21 History Olmesartan/Hydrochlorothiazide 1 tab PO DAILY 09/02/21 09/02/21 History [Olmesartan-Hctz 20-12.5 mg Tab] Rosuvastatin Calcium [Crestor] 20 mg PO DAILY 09/02/21 09/02/21 History Ubidecarenone [Co Q-10] 100 mg PO BID 09/02/21 09/02/21 History Allergies Allergy/AdvReac Type Severity Reaction Status Date / Time hydromorphone HCl AdvReac Itching, Verified 09/02/21 17:29 [From Dilaudid] Hives and eyes swelling ondansetron HCl [From Zofran] AdvReac dysphagia/Paralysed Verified 09/02/21 17:29 esophagus ropinirole [From Requip] AdvReac Insomnia, Verified 09/02/21 17:29 Nausea & Vomiting Physical Exam Vitals: Vital Signs Temp Pulse Pulse Resp BP BP Pulse Ox 09/03/21 06:28 98.3 F 72 98/55 96 09/02/21 17:14 97.5 F L 78 18 150/67 99 09/02/21 09:50 97.6 F 83 22 151/73 100 Intake and Output 09/02/21 09/03/21 09/03/21 22:59 06:59 14:59 Other: Weight 100.5 kg Cranial Nerve Examination - Cranial Nerves Cranial Nerve I- Olfactory: Intact Cranial Nerve II- Optic: Intact Cranial Nerve III- Oculomotor: Intact Cranial Nerve IV- Trochlear: Intact Cranial Nerve V- Trigeminal: Intact Cranial Nerve - Abducens: Intact Cranial Nerve VII- Facial: Intact Cranial Nerve VIII- Auditory: Intact Cranial Nerve IX- Glossopharyngeal: Intact Cranial Nerve X- Vagus: Intact Cranial Nerve XI- Accessory: Intact Cranial Nerve XII- Hypoglossal: Intact Results CBC & Chem 7: 09/02/21 14:18 09/02/21 14:18 Labs: Abnormal Lab Results - Last 24 Hours (Table) 09/02/21 09/02/21 09/02/21 Range/Units 14:18 14:18 20:40 Plt Count 139 L (150-450) k/uL BUN 20 H (7-17) mg/dL Glucose 112 H (74-99) mg/dL Ur Leukocyte Esterase Large H (Negative) Urine WBC 21 H (0-5) /hpf Urine Bacteria Rare H (None) /hpf Urine Mucus Rare H (None) /hpf Urine Yeast (Budding) Occasional H (None) /hpf
[2021-09-03 16:38] LABS: Chol/HDL Ratio 2.25 Ratio; LDL Cholesterol,Calculated 57.7 mg/dL (0.0-131.0)
[2021-09-03] MEDS ORDERED: MELATONIN 1 MG TAB PO SCH (21:00)
[2021-09-03] MEDS: PANTOPRAZOLE 40 MG TABLET PO SCH (21:18)
[2021-09-03] MEDS: EZETIMIBE 10 MG TAB PO SCH (21:18)
[2021-09-03] MEDS: MAGNESIUM OXIDE 400 MG TAB PO SCH (21:18)
[2021-09-03] MEDS: MULTIVITAMINS, THERA 1 EACH TAB PO SCH (21:18)
[2021-09-03] MEDS: clonazePAM 0.5 MG TAB PO SCH (21:19)
[2021-09-03] MEDS: METOPROLOL SUCCINATE (ER) 100 MG TAB.ER.24H PO SCH (21:19)
[2021-09-04] MEDS ORDERED: LEVOTHYROXINE 50 MCG TAB PO SCH (06:30)
[2021-09-04] MEDS: LEVOTHYROXINE 25 MCG TAB PO SCH (06:39)
[2021-09-04] MEDS: hydroCHLOROthiazide 12.5 MG CAP PO SCH (08:15)
[2021-09-04] MEDS: DULoxetine HCL 20 MG CAPSULE.DR PO SCH (08:15)
[2021-09-04] MEDS: LOSARTAN 50 MG TAB PO SCH (08:16)
[2021-09-04] MEDS: ASPIRIN 81 MG PO SCH (08:16)
[2021-09-04] MEDS: ATORVASTATIN 40 MG TAB PO SCH (08:16)
[2021-09-04] MEDS: ACETAMINOPHEN TAB 325 MG TAB PO PRN ×2 (08:31→21:47)
--- NOTE | 2021-09-04 11:40 | P.PN ---
Progress Note - Text Progress Note Date: 09/04/21 Interval History: Patient was seen sitting in the back hallway reading a book and was directable and agreeable to speak with com writer in the office. Patient claims that she is feeling a bit better today and states that she feels "calmer" than yesterday. She states that she feels the medications have been helping her with her anxiety and mood. She states that she is still not "very happy" and mainly was still preoccupied with her son and his alcohol use. She states that she spoke with him over the phone yesterday and he claims that he will try to cut back on alcohol and also go to AA meetings. She states that she misses work and wants to go back to work as soon as she can. She states that she has been going to some groups and trying to participate. She states that she was sleeping fairly well last night however it was interrupted by noises in the hallway and other patients. She states that she has a fair appetite. At this time patient denies any suicidal or homical ideations, intent or plan. Patient denies any auditory, visual hallucinations and denies any paranoia or delusions. Patient denies any side effects from the medications and has been compliant with meds. Mental Status Exam: General Appearance: Patient appears to be overweight, has short hair, stated age is alert, directable, and attempts to cooperate. Not tearful today. Patient appears to have fair hygiene and grooming. Behavior: Patient is seated without any agitated behavior. More cooperative today. Speech: Patient's speech is fluent and nonpressured. Mood/Affect: Patient reports their mood is improving mildly, affect is congruent and constricted. Suicidality/Homicidality: Patient denies having any homicidal ideation intent or plan. Denies any suicidal ideations intent or plan Perceptions: Patient denies any visual hallucinations and denies any auditory hallucinations Though content/process: There is no evidence of any delusional thought content and thought process is linear and goal-directed. Memory and concentration: AOX3, grossly intact for the purposes of this session. Can spell "WORLD" backwards Judgment and insight: Fair IMPRESSIONS: Major depressive disorder, without psychotic features Generalized anxiety disorder Plan: -Patient continues to meet criteria for inpatient psychiatric admission for symptom stabilization and safety. Patient has signed adult voluntary form and medication consent and was placed in patient's chart. -Medications: Increase Cymbalta to 30 mg by mouth daily for mood/anxiety/pain, increased melatonin to 6 mg daily at bedtime for sleep, continue with Klonopin 0.5 mg daily at bedtime for restless leg symptoms/anxiety. -When necessary Ativan for agitation/aggression. -NRT - not needed as patient does not smoke. -SW on board for discharge planning. Encouraged the patient to participate in milieu.
[2021-09-04] MEDS ORDERED: MELATONIN 3 MG TABLET PO SCH (21:00)
[2021-09-04] MEDS: MAGNESIUM OXIDE 400 MG TAB PO SCH (21:47)
[2021-09-04] MEDS: EZETIMIBE 10 MG TAB PO SCH (21:47)
[2021-09-04] MEDS: MULTIVITAMINS, THERA 1 EACH TAB PO SCH (21:47)
[2021-09-04] MEDS: PANTOPRAZOLE 40 MG TABLET PO SCH (21:47)
[2021-09-04] MEDS: METOPROLOL SUCCINATE (ER) 100 MG TAB.ER.24H PO SCH (21:48)
[2021-09-04] MEDS: clonazePAM 0.5 MG TAB PO SCH (21:48)
[2021-09-05] MEDS: LEVOTHYROXINE 25 MCG TAB PO SCH (06:17)
[2021-09-05 07:09] VITALS: TEMP 96.9
[2021-09-05] MEDS: ASPIRIN 81 MG PO SCH (08:15)
[2021-09-05] MEDS: ATORVASTATIN 40 MG TAB PO SCH (08:15)
[2021-09-05] MEDS: LOSARTAN 50 MG TAB PO SCH (08:16)
[2021-09-05] MEDS: hydroCHLOROthiazide 12.5 MG CAP PO SCH (08:16)
[2021-09-05] MEDS: ACETAMINOPHEN TAB 325 MG TAB PO PRN (08:17)
[2021-09-05 08:45] VITALS: BP 127/60; PULSE 88; RESP 16
[2021-09-05] MEDS ORDERED: DULoxetine HCL 30 MG CAPSULE.DR PO SCH (09:00)
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
== END 2021-09-05 12:15 | disposition home or self-care (01) | DRG 881 ==
LOC: EC 09:49 → 3MHU 15:36
PROVIDERS: ADMIT Psychiatry & Neurology Psychiatry; ATTEND Psychiatry & Neurology Psychiatry
DX: F32.A Depression, unspecified (principal); R45.851 Suicidal ideations; E78.5 Hyperlipidemia, unspecified; I25.10 Atherosclerotic heart disease of native coronary artery without angina pectoris; I10 Essential (primary) hypertension; E89.0 Postprocedural hypothyroidism; Z20.822 Contact with and (suspected) exposure to COVID-19; M81.0 Age-related osteoporosis without current pathological fracture; M85.80 Other specified disorders of bone density and structure, unspecified site; F41.1 Generalized anxiety disorder; G25.81 Restless legs syndrome; H91.90 Unspecified hearing loss, unspecified ear; L30.9 Dermatitis, unspecified; M19.90 Unspecified osteoarthritis, unspecified site; Z79.890 Hormone replacement therapy; Z79.899 Other long term (current) drug therapy; Z85.038 Personal history of other malignant neoplasm of large intestine; Z85.850 Personal history of malignant neoplasm of thyroid; Z87.891 Personal history of nicotine dependence; Z90.710 Acquired absence of both cervix and uterus; Z90.721 Acquired absence of ovaries, unilateral; Z95.5 Presence of coronary angioplasty implant and graft; Z88.8 Allergy status to other drugs, medicaments and biological substances; Z88.5 Allergy status to narcotic agent; Z87.19 Personal history of other diseases of the digestive system; Z96.653 Presence of artificial knee joint, bilateral; Z92.21 Personal history of antineoplastic chemotherapy
CPT/HCPCS: 36415; 80053; 80061; 81001; 82075; 83036; 84443; 85025; 87635; 99285

== ENCOUNTER 2022-02-12 09:11 | Day surgery (SDC) | payer MEDICARE, BC ==
[2022-02-10 08:52] VITALS: BMI 36.6
[~2022-02-12 09:11] MED LIST changes: +MOXIFLOXACIN HCL 0.5% DROPS 3 ML BTL OP PRN; +TIMOLOL 0.5% OPHTH DROPS 5 ML BTL OP PRN
[2022-02-12 09:46] VITALS: TEMP 97.3
[2022-02-12] MEDS: TOBRA-DEXAMET 0.3-0.1% OPHTH DROPS 2.5 ML BTL OPHTHALMIC PRN ×2 (09:50→09:51)
[2022-02-12] MEDS: PHENYLEPHRINE 2.5% OPHTH DRP 2ML OP PRN ×3 (09:52→10:01)
[2022-02-12] MEDS: CYCLOPENTOLATE 1% OPHTH SOLN 2 ML BTL OP PRN ×3 (09:54→10:03)
[2022-02-12] MEDS ORDERED: HYALURONATE SODIUM INTRAOCULAR 1 EACH SYRINGE (12MG/ML) INTRAOCULA ONE ×2 (10:10→10:59)
[2022-02-12] MEDS ORDERED: TIMOLOL 0.5% OPHTH SOLN (PF) 0.2 ML DROPERETTE RIGHT EYE ONE ×2 (10:11→10:59)
[2022-02-12] MEDS ORDERED: LIDOCAINE 1% (PF) 10MG/ML VIAL MISCELLANE ONE ×2 (10:11→10:59)
[2022-02-12] MEDS ORDERED: MOXIFLOXACIN HCL 0.5% DROPS 3 ML BTL RIGHT EYE ONE ×2 (10:11→10:59)
[2022-02-12] MEDS ORDERED: BALANCED SALT IRRIG SOLN COMB2 15 ML IRRIG.SOLN INTRAOCULA ONE ×2 (10:11→10:59)
[2022-02-12] MEDS ORDERED: MIDAZOLAM 2 MG/2 ML VIAL ONE (10:42)
[2022-02-12] MEDS ORDERED: fentaNYL (PF) 50 MCG/ML 2 ML AMP ONE (10:42)
[2022-02-12] MEDS ORDERED: EPINEPHrine (PF) 0.3 ML in BALANCED SALT IRRIG SOLN COMB2 500 ML IRRIGATION ONE (10:49)
--- NOTE | 2022-02-12 11:18 | P.OP ---
Date of Procedure: 02/12/22 Preoperative Diagnosis: NS & CS & PSC Postoperative Diagnosis: same Procedure(s) Performed: PIOL, OD Implants: [id number] 22.50 Anesthesia: MAC Surgeon: Gerardo Prieto Pathology: none sent Condition: stable Disposition: same day Indications for Procedure: blurry vision Operative Findings: no complications
[2022-02-12 11:56] VITALS: BP 138/66; PULSE 56; RESP 18
--- NOTE | 2022-02-12 23:33 | OP ---
OPERATIVE REPORT PREOPERATIVE DIAGNOSIS: Nuclear sclerosis and cortical sclerosis. POSTOPERATIVE DIAGNOSIS: Nuclear sclerosis and cortical sclerosis. OPERATION: Phacoemulsification of cataract and intraocular lens implant of the right eye. NARRATIVE: After obtaining the appropriate consent, the patient was brought to the operating room. There the patient was placed under cardiac monitoring, prepped and draped in the usual sterile manner. The patient was approached from the right temporal side. At the 11 o'clock position, a 1.1 mm keratome was used to create a paracentesis port. Through this opening, 1% Xylocaine MPF 50/50 mix with balanced salt solution was injected into the anterior chamber. This was followed by stabilization of the anterior chamber with Amvisc viscoelastic. At the 9 o'clock position, a 2.75 mm bina keratome was used to create a self-scaling corneal flap incision in a Langerman fashion. Through this opening, a cystotome was introduced to begin a continuous tear capsulorrhexis which was completed using the Utrata forceps. Care was taken to ensure that the capsulorrhexis was at least the size of the charles on the anterior cornea. Hydrodissection and hydrodelineation of the lens were accomplished with balanced salt solution. Phacoemulsification of the lens utilizing phaco chop was accomplished in 15 seconds at 13% power. Addition Xylocaine MPF was instilled into the anterior chamber. This was followed by removal of the remaining cortex under irrigation and aspiration along with careful polishing of the posterior capsule in a capsule vacuum mode. Additional Amvisc viscoelastic was then used to stabilize the capsular bag, and the [employer] Lomb MX60E 22.50D intraocular lens was injected into the capsular bag without difficulty. The lens was rotated 270 degrees so that the haptics resided at the 6 and 12 o'clock positions, and all remaining viscoelastic was then removed from within the capsular bag and around the anterior chamber. The eye was brought to normal intraocular pressure through the paracentesis port along with slight hydration of the incision sites. Watertight integrity was confirmed using a fluorescein strip. The patient then received 2 drops of 0.5% timolol followed by 2 drops of Vigamox and 2 drops of 1% atropine. The patient was then lightly patched and shielded in the usual manner. There was no complications from the procedure. The patient tolerated the procedure well and was returned to outpatient recovery in good condition. MMODL / IJN: [id number] / JAMES
== END 2022-02-12 12:01 | disposition home or self-care (01) ==
LOC: OR 09:11
PROVIDERS: ATTEND Ophthalmology
DX: H25.11 Age-related nuclear cataract, right eye (principal); H25.011 Cortical age-related cataract, right eye; H40.013 Open angle with borderline findings, low risk, bilateral; H00.026 Hordeolum internum left eye, unspecified eyelid; H52.13 Myopia, bilateral; H00.023 Hordeolum internum right eye, unspecified eyelid; H52.221 Regular astigmatism, right eye; H52.4 Presbyopia; Z98.42 Cataract extraction status, left eye; Z96.1 Presence of intraocular lens; I51.9 Heart disease, unspecified; E07.9 Disorder of thyroid, unspecified; K21.9 Gastro-esophageal reflux disease without esophagitis; Z95.5 Presence of coronary angioplasty implant and graft; Z90.49 Acquired absence of other specified parts of digestive tract; Z96.653 Presence of artificial knee joint, bilateral; Z96.611 Presence of right artificial shoulder joint; Z90.710 Acquired absence of both cervix and uterus; Z79.890 Hormone replacement therapy; Z79.899 Other long term (current) drug therapy; Z88.5 Allergy status to narcotic agent; Z88.8 Allergy status to other drugs, medicaments and biological substances
CPT/HCPCS: 66984; C1780; J2250; J0171; J3010; J2001

== ENCOUNTER 2022-03-19 07:26 | Day surgery (SDC) | payer MEDICARE, BC ==
[2022-03-19] MEDS: CYCLOPENTOLATE 1% OPHTH SOLN 2 ML BTL OP PRN ×3 (08:08→08:26)
[2022-03-19] MEDS: PHENYLEPHRINE 2.5% OPHTH DRP 2ML OP PRN ×3 (08:12→08:29)
[2022-03-19 08:14] VITALS: TEMP 98
[2022-03-19] MEDS ORDERED: fentaNYL (PF) 50 MCG/ML 2 ML AMP ONE (09:02)
[2022-03-19] MEDS ORDERED: HYALURONATE SODIUM INTRAOCULAR 1 EACH SYRINGE (12MG/ML) INTRAOCULA ONE (09:15)
[2022-03-19] MEDS ORDERED: LIDOCAINE 1% (PF) 10MG/ML VIAL MISCELLANE ONE (09:16)
[2022-03-19] MEDS ORDERED: BALANCED SALT IRRIG SOLN COMB2 15 ML IRRIG.SOLN IRRIGATION ONE (09:16)
[2022-03-19] MEDS ORDERED: EPINEPHrine (PF) 0.3 ML in BALANCED SALT IRRIG SOLN COMB2 500 ML IRRIGATION ONE (09:17)
--- NOTE | 2022-03-19 09:31 | P.OP ---
Date of Procedure: 03/19/22 Preoperative Diagnosis: lens complications Postoperative Diagnosis: same Procedure(s) Performed: IOL exchange Implants: [id number] 21.50 Anesthesia: MAC Surgeon: Gerardo Prieto Pathology: none sent Condition: stable Disposition: same day Indications for Procedure: blurry vision Operative Findings: no complications
[2022-03-19 09:37] VITALS: BP 149/106; PULSE 51; RESP 14
--- NOTE | 2022-03-20 01:53 | OP ---
OPERATIVE REPORT PROCEDURE PERFORMED: Exchange of intra-ocular lens of the right eye. PREOPERATIVE DIAGNOSIS: Persistent myopia post cataract extraction approximately 2 weeks prior to today's admission. She is post LASIK and apparent initial calculations had overshot the amount of necessary correction. Therefore, the patient has been brought to the operating room to swap the lens for one of the more appropriate intra-ocular power. DESCRIPTION OF PROCEDURE: When she was brought to the operating room, she was then placed in the proper supine position under cardiac monitoring, then prepped and draped in the usual sterile manner. She was approached from her right temporal side, and at the 11 o'clock position, an MVR blade was used to create a paracentesis port. Through this opening, 1% Xylocaine MPF 50:50 mix with balanced salt solution was injected into the anterior chamber. This was followed by stabilization of the anterior chamber with Amvisc. At the 9 o'clock position, a 2.8-mm keratome was used to create a self-sealing corneal flap incision. Through this opening, an irrigating cannula was used to dissect the anterior capsular leaflet from the surface of the intraocular lens. Once an opening was obtained, this was followed by further dissection using the viscoelastic. Care was taken to free up 360 degrees of the capsule freely allowing the lens to be removed from the capsular bag and placed into the anterior chamber. Additional viscoelastic was then placed in the anterior chamber, and using a [employer] lens removal system, the lens was divided and each half was brought through the temporal incision intact. Once this was accomplished, a small amount of additional viscoelastic was placed in the eye, and a Bausch [employer] Lomb MX60E 21.5 diopter posterior chamber intraocular lens was then injected into the capsular bag without difficulty. The lens was rotated using a Sinskey hook to assure the haptics were seated appropriately within the capsular bags equator. Removal of the remaining viscoelastic occurred under irrigation/aspiration and removal from behind the intraocular lens was accomplished carefully with the irrigation/aspiration instrument. The lens was then tamponaded against the posterior capsule and the irrigation/aspiration unit was removed from the eye. Through the temporal incision, the intraocular pressure was normalized with balanced salt solution and care was taken to ensure watertight integrity of all incisional wounds. The patient then received 2 drops of 0.5% timolol, followed by 2 drops of 0.5% moxifloxacin. She was then lightly patched and shielded in the usual manner. There were no complications from the procedure. She tolerated the procedure well and was returned to outpatient recovery in good condition. ABIMAEL / ADONIS: [id number] /
== END 2022-03-19 10:12 | disposition home or self-care (01) ==
LOC: OR 07:26
PROVIDERS: ATTEND Ophthalmology
DX: T85.29XA Other mechanical complication of intraocular lens, initial encounter (principal); I11.0 Hypertensive heart disease with heart failure; I50.9 Heart failure, unspecified; E07.9 Disorder of thyroid, unspecified; E78.00 Pure hypercholesterolemia, unspecified; K21.9 Gastro-esophageal reflux disease without esophagitis; Z79.890 Hormone replacement therapy; Z79.899 Other long term (current) drug therapy; Z79.891 Long term (current) use of opiate analgesic; H00.026 Hordeolum internum left eye, unspecified eyelid; H52.13 Myopia, bilateral; H00.023 Hordeolum internum right eye, unspecified eyelid; H52.4 Presbyopia; Z96.1 Presence of intraocular lens; Z98.41 Cataract extraction status, right eye; Z48.810 Encounter for surgical aftercare following surgery on the sense organs
CPT/HCPCS: 66986; C1780; J0171; J3010; J2001